=== PATIENT | female | born 1990 | race Asian ===

== ENCOUNTER 2022-08-05 10:50 | Inpatient (IN) | payer OTHER ==
[2022-08-05] MEDS: LACTATED RINGERS SOLUTION 1,000 ML IV SCH (11:40)
[2022-08-05 11:42] VITALS: BMI 29.0
[2022-08-05 11:43] LABS: BASO % 0.6 % (0-2.0); EOS % 1.7 % (0-4.5); HEMATOCRIT 29.2 % (32.4-45.2); HEMOGLOBIN 9.3 GM/dL (10.7-15.3); LYMPH % 23.4 % (8-40); MCH 21.3 pg (25.7-33.7); MEAN CELL VOLUME 66.4 fl (80-96); MEAN PLT VOLUME 10.6 fl (7.5-11.1); MONO % 6.5 % (3.8-10.2); NEUT % 67.8 % (42.8-82.8); PLATELET COUNT 241 10^3/uL (134-434); RBC 4.39 M/mm3 (3.60-5.2); RDW 18.4 % (11.6-15.6); WHITE BLOOD COUNT 10.8 K/mm3 (4.0-10.0)
[2022-08-05 11:50] LABS: PROTHROMBIN TIME (PATIENT) 11.6 SEC (9.7-13.0)
[2022-08-05 11:53] LABS: ACTIVATED PTT 25.8 SECONDS (25.2-36.5)
[2022-08-05 12:11] LABS: POTASSIUM 4.1 mmol/L (3.5-5.1)
[2022-08-05 12:12] LABS: CALCIUM 9.1 mg/dL (8.5-10.1)
[2022-08-05 12:13] LABS: BLOOD UREA NITROGEN 6.7 mg/dL (7-18)
[2022-08-05 12:16] LABS: CREATININE 0.6 mg/dL (0.55-1.3)
[2022-08-05 12:34] LABS: ANISOCYTOSIS 3+; MACROCYTOSIS 1+
[2022-08-05] MEDS ORDERED: OXYTOCIN 30 UNITS in 0.9% NS 30 UNIT/500 ML INFUS.BAG IVPB ONE (15:37)
[2022-08-05] MEDS: OXYTOCIN 30 UNITS in 0.9% NS 30 UNIT/500 ML INFUS.BAG IVPB SCH (15:40)
[2022-08-06] MEDS ORDERED: FENTANYL/BUPIVACAINE/NS/PF - PCEA - 50 ML DISP.SYRIN EP ONE ×3 (00:04→10:13)
[2022-08-06] MEDS: LACTATED RINGERS SOLUTION 1,000 ML IV SCH ×2 (00:19→12:50)
[2022-08-06] MEDS ORDERED: BUPIVACAINE HCL/PF 0.25% (2.5MG/ML) 10 ML VIAL ONE ×2 (00:26→12:11)
[2022-08-06] MEDS ORDERED: NALOXONE HCL 0.4 MG/ML VIAL IVPUSH PRN (00:26)
[2022-08-06] MEDS: FENTANYL/BUPIVACAINE/NS/PF - PCEA - 50 ML DISP.SYRIN EP SCH ×2 (01:00→10:29)
[2022-08-06] MEDS ORDERED: DEXTROSE 5%-LACTATED RINGERS 1,000 ML IV SCH (03:45)
[2022-08-06] MEDS ORDERED: FENTANYL CITRATE/PF 50 MCG/ML VIAL ONE ×2 (12:11→14:48)
[2022-08-06] MEDS ORDERED: OXYTOCIN 20 UNITS in 0.9% NS 20 UNIT/1,000 ML INFUS.BAG IV ONE (12:53)
[2022-08-06] MEDS ORDERED: LIDO 2%/EPI 1:200000 PRESRVFRE (20 ML SDVIAL) ONE (14:48)
[2022-08-06] MEDS ORDERED: ONDANSETRON 4 MG/2 ML VIAL ONE (15:01)
[2022-08-06] MEDS ORDERED: ceFAZolin SODIUM 1 GM VIAL ONE (15:01)
[2022-08-06] MEDS ORDERED: OXYTOCIN 10 UNITS/ML VIAL ONE ×2 (15:12→15:14)
[2022-08-06] MEDS ORDERED: MIDAZOLAM HCL 2 MG/2 ML SINGLE DOSE VIAL ONE (15:35)
[2022-08-06] MEDS ORDERED: morphine SULFATE/PF 1 MG/2 ML (2cc Syringe - QUVA) ONE (16:01)
[2022-08-06 16:10] LABS: CORD BASE EXCESS -7.3 mmol/L (0-2); CORD HCO3 19.3 mmHg (20-29); CORD PCO2 42.7 mmHg (30-78); CORD pH 7.273 (7.14-7.44)
[2022-08-06 16:13] LABS: CORD HCO3 22.2 mmHg (20-29); CORD PCO2 57.1 mmHg (30-78); CORD pH 7.207 (7.14-7.44)
[2022-08-06] MEDS ORDERED: ONDANSETRON 4 MG/2 ML VIAL IVPUSH PRN (16:18)
[2022-08-06] MEDS ORDERED: BENZOCAINE 28 GM HEMORRHOIDAL OINTMENT TP PRN (16:24)
[2022-08-06] MEDS ORDERED: BENZOCAINE 20% 57 GM BOTTLE TP PRN (16:24)
[2022-08-06] MEDS ORDERED: WITCH HAZEL 50% (TUCKS) 40 PAD/JAR PAD TP PRN (16:24)
[2022-08-06] MEDS ORDERED: METHYLERGONOVINE MALEATE 0.2 MG/1 ML AMP IM PRN (16:24)
[2022-08-06] MEDS ORDERED: ACETAMINOPHEN 325 MG TABLET (FP) PO PRN (16:24)
[2022-08-06] MEDS ORDERED: SENNOSIDES/DOCUSATE COMBO (SENNA PLUS) TABLET (UD) PO PRN (16:24)
[2022-08-06] MEDS ORDERED: IBUPROFEN 800 MG/8 ML IJ IVPB ONE (17:38)
[2022-08-06] MEDS: OXYTOCIN 20 UNITS in 0.9% NS 20 UNIT/1,000 ML INFUS.BAG IV SCH (17:40)
[2022-08-06] MEDS: IBUPROFEN 800 MG/8 ML IJ IVPB PRN (17:42)
[2022-08-06] MEDS ORDERED: SODIUM CHLORIDE 1,000 ML IV SCH (18:30)
[2022-08-06] MEDS: OXYTOCIN 30 UNITS in 0.9% NS 30 UNIT/500 ML INFUS.BAG IVPB SCH (19:57)
[2022-08-06] MEDS ORDERED: ceFAZolin 2 GRAM PREMIX BAG IVPB SCH (23:00)
[2022-08-06] MEDS: CEFAZOLIN SODIUM 2 GM in DEXTROSE 5%-WATER 100 ML IVPB SCH (23:10)
[2022-08-07] MEDS: OXYTOCIN 20 UNITS in 0.9% NS 20 UNIT/1,000 ML INFUS.BAG IV SCH (04:10)
[2022-08-07] MEDS ORDERED: oxyCODONE HCL 5 MG TABLET PO PRN (04:28)
[2022-08-07] MEDS: IBUPROFEN 800 MG/8 ML IJ IVPB PRN (08:30)
[2022-08-07 08:43] LABS: BASO % 0.5 % (0-2.0); EOS % 0.6 % (0-4.5); HEMATOCRIT 24.3 % (32.4-45.2); HEMOGLOBIN 7.8 GM/dL (10.7-15.3); MCH 21.3 pg (25.7-33.7); MCHC 32.1 g/dl (32.0-36.0); MEAN CELL VOLUME 66.2 fl (80-96); MEAN PLT VOLUME 10.6 fl (7.5-11.1); MONO % 6.6 % (3.8-10.2); NEUT % 79.3 % (42.8-82.8); PLATELET COUNT 189 10^3/uL (134-434); RBC 3.67 M/mm3 (3.60-5.2); RDW 18.6 % (11.6-15.6); WHITE BLOOD COUNT 13.6 K/mm3 (4.0-10.0)
[2022-08-07] MEDS: ENOXAPARIN NA (PORCINE) 40 MG/0.4 ML DISP.SYRIN SQ SCH (09:43)
[2022-08-07] MEDS: PRENATAL VITAMINS W/ FOLIC ACID TABLET (FP) PO SCH (09:43)
[2022-08-07] MEDS: CEFAZOLIN SODIUM 2 GM in DEXTROSE 5%-WATER 100 ML IVPB SCH ×2 (09:43→14:34)
[2022-08-07] MEDS: IBUPROFEN 600 MG TABLET (FP) PO PRN (15:35)
[2022-08-07] MEDS: SIMETHICONE 80 MG TAB.CHEW (FP) PO PRN (15:35)
[2022-08-07] MEDS ORDERED: BISACODYL 10 MG SUPP.RECT RC PRN (16:28)
[2022-08-07] MEDS: oxyCODONE HCL 5 MG TABLET PO PRN (22:29)
[2022-08-08] MEDS: SIMETHICONE 80 MG TAB.CHEW (FP) PO PRN ×3 (04:03→17:23)
[2022-08-08] MEDS: IBUPROFEN 600 MG TABLET (FP) PO PRN ×3 (04:03→17:22)
[2022-08-08 07:41] LABS: BASO % 0.3 % (0-2.0); EOS % 1.5 % (0-4.5); HEMATOCRIT 22.3 % (32.4-45.2); HEMOGLOBIN 7.1 GM/dL (10.7-15.3); MEAN CELL VOLUME 65.5 fl (80-96); MEAN PLT VOLUME 10.6 fl (7.5-11.1); MONO % 5.9 % (3.8-10.2); NEUT % 75.3 % (42.8-82.8); PLATELET COUNT 216 10^3/uL (134-434); RDW 18.6 % (11.6-15.6); WHITE BLOOD COUNT 13.3 K/mm3 (4.0-10.0)
[2022-08-08] MEDS: PRENATAL VITAMINS W/ FOLIC ACID TABLET (FP) PO SCH (09:14)
[2022-08-08] MEDS: ENOXAPARIN NA (PORCINE) 40 MG/0.4 ML DISP.SYRIN SQ SCH (09:14)
[2022-08-09] MEDS: SIMETHICONE 80 MG TAB.CHEW (FP) PO PRN (06:38)
[2022-08-09] MEDS: oxyCODONE HCL 5 MG TABLET PO PRN (06:39)
[2022-08-09 08:06] LABS: BASO % 0.5 % (0-2.0); EOS % 3.4 % (0-4.5); HEMATOCRIT 22.9 % (32.4-45.2); HEMOGLOBIN 7.2 GM/dL (10.7-15.3); LYMPH % 18.1 % (8-40); MCH 20.9 pg (25.7-33.7); MCHC 31.4 g/dl (32.0-36.0); MEAN CELL VOLUME 66.6 fl (80-96); MEAN PLT VOLUME 9.6 fl (7.5-11.1); MONO % 6.4 % (3.8-10.2); NEUT % 71.6 % (42.8-82.8); PLATELET COUNT 209 10^3/uL (134-434); RBC 3.43 M/mm3 (3.60-5.2); RDW 18.7 % (11.6-15.6); WHITE BLOOD COUNT 9.7 K/mm3 (4.0-10.0)
[2022-08-09] MEDS ORDERED: FERROUS SO4 325 MG TABLET (FP) PO SCH (10:00)
[2022-08-09] MEDS: ENOXAPARIN NA (PORCINE) 40 MG/0.4 ML DISP.SYRIN SQ SCH (10:15)
[2022-08-09] MEDS: PRENATAL VITAMINS W/ FOLIC ACID TABLET (FP) PO SCH (10:15)
[2022-08-09 12:07] VITALS: BP 135/85; PULSE 64; RESP 17; TEMP 97.4
== END 2022-08-09 13:05 | disposition home or self-care (01) | DRG 788 ==
LOC: JLDR 10:50 → J3W 08-06 21:15
PROVIDERS: ADMIT Obstetrics & Gynecology; ATTEND Obstetrics & Gynecology
PROC: 10D00Z1 Extraction of Products of Conception, Low, Open Approach (ICD-10-PCS; principal; 2022-08-05)
DX: O62.1 Secondary uterine inertia (principal); O76 Abnormality in fetal heart rate and rhythm complicating labor and delivery; Z3A.38 38 weeks gestation of pregnancy; Z37.0 Single live birth
CPT/HCPCS: 36415; 36600; 80048; 82803; 85025; 85610; 85730; 86780; 86850; 86900; 86901; 87340; 88307-TC; C9803-CS; U0003; U0005